=== PATIENT | female | born 1985 | race Caucasian/White ===

== ENCOUNTER 2017-08-04 05:43 | Inpatient (IN) | payer BC ==
[~2017-08-04] VITALS: Ht 165.1 cm; Wt 117.9 kg
[2017-08-04] VITALS (8 sets, daily range): BP systolic 112–144; BP diastolic 59–82
[~2017-08-04 05:43] MED LIST: IRON325 M1 PO; PRENATAL TABLE1 EAC3 PO; ZANTAC150 MG PO
[2017-08-04] MEDS ORDERED: DOCUSATE SODIU100 MG PO (09:58)
[2017-08-04] MEDS ORDERED: ENDOCET 5-3251 EACH PO (09:58)
[2017-08-04] MEDS ORDERED: IBUPROFEN800 MG PO (09:58)
[2017-08-05 03:52] VITALS: BP 123/54
[2017-08-05 06:14] LABS: BASOPHIL (%) 0.4 % (0-1); BASOPHIL COUNT 0.1 K/uL (0-0.1); EOSINOPHIL (%) 0.3 % (0-5); HEMATOCRIT 27.2 % (36.0-46.0); IMMATURE GRANULOCYTE (%) 0.6 % (0.0-0.7); LYMPHOCYTE (%) 21.1 % (15-42); LYMPHOCYTE COUNT 2.6 K/uL (1.0-2.8); MCH 29.6 PG (29.0-34.0); MCHC 32.7 G/DL (30.0-36.0); MCV 90.4 FL (83-99); MONOCYTE COUNT 0.9 K/uL (0-0.8); NEUTROPHIL (%) 70.6 % (45-76); NEUTROPHIL COUNT 8.8 K/uL (1.8-6.4); PLATELET COUNT 280 K/uL (156-360); RBC DIS.WIDTH-CV 14.3 % (11.8-14.6); RBC DIS.WIDTH-SD 46.5 % (39-53); WHITE BLOOD COUNT 12.5 K/uL (4.1-10.2)
[2017-08-05 06:15] LABS: HEMOGLOBIN 8.9 G/DL (11.9-15.5); RED BLOOD COUNT 3.01 M/uL (3.80-5.20)
[2017-08-05 07:43] VITALS: BP 108/54
[2017-08-05 11:00] VITALS: BP 124/58
[2017-08-05 17:21] VITALS: BP 135/62
[2017-08-05 20:04] VITALS: BP 118/60
[2017-08-05 23:38] VITALS: BP 133/62
[2017-08-06 03:00] VITALS: BP 128/69
[2017-08-06 07:29] VITALS: BP 119/59
[2017-08-06 15:14] VITALS: BP 130/74
[2017-08-06 22:57] VITALS: BP 124/79
[2017-08-07 07:06] VITALS: BP 156/80
[2017-08-07 14:44] VITALS: BP 132/67
[2017-08-07 23:12] VITALS: BP 131/69
[2017-08-08 07:35] VITALS: BP 143/80
== END 2017-08-08 11:45 | disposition home or self-care (01) | DRG 766 ==
LOC: 2WEST 05:43 → 2SOUTH 08:33 → 2WEST 08-08 11:45
PROVIDERS: Obstetrics & Gynecology
PROC: 10D00Z1 Extraction of Products of Conception, Low, Open Approach (ICD-10-PCS; principal; 2017-08-04)
DX: O32.1XX0 Maternal care for breech presentation, not applicable or unspecified (principal); O69.81X0 Labor and delivery complicated by cord around neck, without compression, not applicable or unspecified; Z37.0 Single live birth; Z3A.39 39 weeks gestation of pregnancy; D64.9 Anemia, unspecified; O99.02 Anemia complicating childbirth; K21.9 Gastro-esophageal reflux disease without esophagitis; O99.62 Diseases of the digestive system complicating childbirth; Z87.891 Personal history of nicotine dependence; O99.824 Streptococcus B carrier state complicating childbirth; E66.01 Morbid (severe) obesity due to excess calories; Z68.36 Body mass index [BMI] 36.0-36.9, adult; O99.214 Obesity complicating childbirth
CPT/HCPCS: 36415; 85025; 86850; 86900; 86901; 87081; 87641; J0690; J1100; J2274; J2405; J2550; J2590; J7120